=== PATIENT | female | born 1965 | race Caucasian/White ===

== ENCOUNTER 2017-04-13 11:58 | Outpatient (RCR) | payer OTHER ==
[2013-11-24 10:05] VITALS: BMI 36.0
[2017-03-16] MEDS: ACETAMINOPHEN 500 MG TAB PO PRN (13:18)
[2017-03-16] MEDS: diphenhydrAMINE 25 MG CAP PO PRN (13:18)
[2017-03-16 17:00] VITALS: BP 136/86
[~2017-04-13 11:58] MED LIST: CYC10 PO; DEXTROSE 5%(*) 100 ML BAG 100 ML IVPB PRN; ESTR0.62 PO; FING0.5C2 PO; HYDROCORTISONE 100 MG/2 ML IVP PRN; IBUP-1618 PO; IBUP800T37 PO; LIDOCAINE/SOD BICARB 8.4% SYR ID PRN; LOR5 PO; NATALIZUMAB IVPB ONE; NS 0.9% IVPB ONE; OXYC-373 PO; RANI25TA2 PO; ZOL5 PO; diphenhydrAMINE 50 MG/ML VIAL IVP PRN
[2017-04-13] MEDS: diphenhydrAMINE 25 MG CAP PO PRN (12:14)
[2017-04-13] MEDS: ACETAMINOPHEN 500 MG TAB PO PRN (12:15)
[2017-04-13 12:30] VITALS: BP 144/90
[2017-04-13] MEDS ORDERED: NS 0.9% IVPB ONE (13:00)
[2017-04-13] MEDS ORDERED: NATALIZUMAB IVPB ONE (13:00)
[2017-04-13] MEDS: NS(*) 0.9% 100 ML BAG 100 ML IVPB PRN (13:12)
[2017-05-12 12:03] VITALS: BP 131/86
[2017-05-12] MEDS: diphenhydrAMINE 25 MG CAP PO PRN (12:27)
[2017-05-12] MEDS: ACETAMINOPHEN 500 MG TAB PO PRN (12:27)
[2017-05-12] MEDS: NS(*) 0.9% 100 ML BAG 100 ML IVPB PRN (12:28)
[2017-05-12] MEDS ORDERED: NATALIZUMAB IVPB ONE (12:30)
[2017-05-12] MEDS ORDERED: NS 0.9% IVPB ONE (12:30)
== END 2017-06-14 ==
LOC: SPU 11:58
PROVIDERS: ATTEND Psychiatry & Neurology Neurology
DX: G35 Multiple sclerosis (principal); R20.0 Anesthesia of skin; R20.2 Paresthesia of skin; R41.3 Other amnesia; R47.89 Other speech disturbances; R25.1 Tremor, unspecified; R27.9 Unspecified lack of coordination; M62.838 Other muscle spasm; M54.40 Lumbago with sciatica, unspecified side; G89.29 Other chronic pain; R26.9 Unspecified abnormalities of gait and mobility; R53.1 Weakness; R53.82 Chronic fatigue, unspecified; H04.123 Dry eye syndrome of bilateral lacrimal glands; R68.89 Other general symptoms and signs; K59.00 Constipation, unspecified; N31.9 Neuromuscular dysfunction of bladder, unspecified; F32.89 Other specified depressive episodes; F41.9 Anxiety disorder, unspecified; M25.60 Stiffness of unspecified joint, not elsewhere classified; L29.9 Pruritus, unspecified; R20.8 Other disturbances of skin sensation
CPT/HCPCS: 96365; J2323; J7050; Q0163

== ENCOUNTER 2017-08-27 13:00 | Outpatient (RCR) | payer OTHER ==
[2013-11-24 10:05] VITALS: BMI 36.0
[2017-06-19 12:44] VITALS: BP 138/92
[2017-06-19] MEDS: ACETAMINOPHEN 500 MG TAB PO PRN (12:49)
[2017-06-19] MEDS: diphenhydrAMINE 25 MG CAP PO PRN (12:49)
[2017-06-19] MEDS: LIDOCAINE/SOD BICARB 8.4% SYR ID PRN (13:10)
[2017-06-19] MEDS: NS(*) 0.9% 100 ML BAG 100 ML IVPB PRN (14:48)
[2017-07-28] MEDS: ACETAMINOPHEN 500 MG TAB PO PRN (12:39)
[2017-07-28] MEDS: diphenhydrAMINE 25 MG CAP PO PRN (12:39)
[2017-07-28] MEDS: NS(*) 0.9% 100 ML BAG 100 ML IVPB PRN (12:40)
[2017-07-28] MEDS: LIDOCAINE/SOD BICARB 8.4% SYR ID PRN (12:40)
[2017-07-28 12:41] VITALS: BP 129/89
[2017-07-28 14:24] VITALS: BP 121/75
[~2017-08-27 13:00] MED LIST changes: -HYDROCORTISONE 100 MG/2 ML IVP PRN; -LIDOCAINE/SOD BICARB 8.4% SYR ID PRN; -diphenhydrAMINE 50 MG/ML VIAL IVP PRN
[2017-08-27 13:57] VITALS: BP 143/90
[2017-08-27] MEDS: diphenhydrAMINE 25 MG CAP PO PRN (14:18)
[2017-08-27] MEDS: ACETAMINOPHEN 500 MG TAB PO PRN (14:18)
[2017-08-27] MEDS: NS(*) 0.9% 100 ML BAG 100 ML IVPB PRN (14:19)
[2017-08-27] MEDS: LIDOCAINE/SOD BICARB 8.4% SYR ID PRN (14:19)
[2017-08-27] MEDS ORDERED: NATALIZUMAB IVPB ONE (14:30)
[2017-08-27] MEDS ORDERED: NS 0.9% IVPB ONE (14:30)
[2017-08-27 15:53] VITALS: BP 115/72
== END 2017-09-16 ==
LOC: SPU 13:00
PROVIDERS: ATTEND Psychiatry & Neurology Neurology
DX: G35 Multiple sclerosis (principal); R20.0 Anesthesia of skin; R20.2 Paresthesia of skin; R41.3 Other amnesia; R47.89 Other speech disturbances; R25.1 Tremor, unspecified; R27.9 Unspecified lack of coordination; M62.838 Other muscle spasm; M54.40 Lumbago with sciatica, unspecified side; G89.29 Other chronic pain; R26.9 Unspecified abnormalities of gait and mobility; R53.1 Weakness; R53.82 Chronic fatigue, unspecified; H04.123 Dry eye syndrome of bilateral lacrimal glands; R68.89 Other general symptoms and signs; K59.00 Constipation, unspecified; N31.9 Neuromuscular dysfunction of bladder, unspecified; F32.89 Other specified depressive episodes; F41.9 Anxiety disorder, unspecified; M25.60 Stiffness of unspecified joint, not elsewhere classified; L29.9 Pruritus, unspecified; R20.8 Other disturbances of skin sensation
CPT/HCPCS: 96365; J2323; J7050; Q0163

== ENCOUNTER 2017-09-25 13:05 | Outpatient (RCR) | payer OTHER ==
[2013-11-24 10:05] VITALS: BMI 36.0
[~2017-09-25 13:05] MED LIST changes: -DEXTROSE 5%(*) 100 ML BAG 100 ML IVPB PRN; -NATALIZUMAB IVPB ONE; -NS 0.9% IVPB ONE
[2017-09-25 13:14] VITALS: BP 132/85
[2017-09-25] MEDS ORDERED: DEXTROSE 5%(*) 100 ML BAG 100 ML IVPB PRN (13:15)
[2017-09-25] MEDS ORDERED: LIDOCAINE/SOD BICARB 8.4% SYR ID PRN (13:15)
[2017-09-25] MEDS ORDERED: NS(*) 0.9% 100 ML BAG 100 ML IVPB PRN (13:15)
[2017-09-25] MEDS ORDERED: NATALIZUMAB IVPB ONE (13:25)
[2017-09-25] MEDS ORDERED: NS 0.9% IVPB ONE (13:25)
[2017-09-25] MEDS ORDERED: diphenhydrAMINE 50 MG/ML VIAL IVP PRN (13:30)
[2017-09-25] MEDS ORDERED: diphenhydrAMINE 25 MG CAP PO PRN (13:30)
[2017-09-25] MEDS ORDERED: ACETAMINOPHEN 500 MG TAB PO PRN (13:30)
[2017-09-25] MEDS ORDERED: HYDROCORTISONE 100 MG/2 ML IVP PRN (13:30)
== END 2017-09-28 13:52 | disposition home or self-care (01) ==
LOC: SPU 13:05
PROVIDERS: ATTEND Psychiatry & Neurology Neurology
DX: G35 Multiple sclerosis (principal); R20.0 Anesthesia of skin; R20.2 Paresthesia of skin; R41.3 Other amnesia; R47.89 Other speech disturbances; R25.1 Tremor, unspecified; R27.9 Unspecified lack of coordination; M62.838 Other muscle spasm; M54.40 Lumbago with sciatica, unspecified side; G89.29 Other chronic pain; R26.9 Unspecified abnormalities of gait and mobility; R53.1 Weakness; R53.82 Chronic fatigue, unspecified; H04.123 Dry eye syndrome of bilateral lacrimal glands; R68.89 Other general symptoms and signs; K59.00 Constipation, unspecified; N31.9 Neuromuscular dysfunction of bladder, unspecified; F32.89 Other specified depressive episodes; F41.9 Anxiety disorder, unspecified; M25.60 Stiffness of unspecified joint, not elsewhere classified; L29.9 Pruritus, unspecified; R20.8 Other disturbances of skin sensation
CPT/HCPCS: 96365; J2323; J7050

== ENCOUNTER 2017-12-21 13:28 | Outpatient (RCR) | payer OTHER ==
[2013-11-24 10:05] VITALS: BMI 36.0
[2017-10-23 13:02] VITALS: BP 148/93
[2017-10-23] MEDS: NS(*) 0.9% 100 ML BAG 100 ML IVPB PRN (13:30)
[2017-10-23] MEDS: ACETAMINOPHEN 500 MG TAB PO PRN (13:50)
[2017-10-23] MEDS: LIDOCAINE/SOD BICARB 8.4% SYR ID PRN (13:50)
[2017-10-23 15:51] VITALS: BP 121/77
[2017-11-23] MEDS: LIDOCAINE/SOD BICARB 8.4% SYR ID PRN (13:00)
[2017-11-23] MEDS: ACETAMINOPHEN 500 MG TAB PO PRN (13:16)
[2017-11-23 15:30] VITALS: BP 122/72
[~2017-12-21 13:28] MED LIST changes: +DEXTROSE 5%(*) 100 ML BAG 100 ML IVPB PRN; +NATALIZUMAB IVPB ONE; +NS 0.9% IVPB ONE; +diphenhydrAMINE 25 MG CAP PO PRN; +diphenhydrAMINE 50 MG/ML VIAL IVP PRN
[2017-12-21] MEDS: ACETAMINOPHEN 500 MG TAB PO PRN (14:01)
[2017-12-21] MEDS: LIDOCAINE/SOD BICARB 8.4% SYR ID PRN (14:01)
[2017-12-21] MEDS: NS(*) 0.9% 100 ML BAG 100 ML IVPB PRN (14:02)
[2017-12-21 14:03] VITALS: BP 119/75
[2017-12-21] MEDS ORDERED: NATALIZUMAB IVPB ONE (14:15)
[2017-12-21] MEDS ORDERED: NS 0.9% IVPB ONE (14:15)
== END 2018-01-20 ==
LOC: SPU 13:28
PROVIDERS: ATTEND Psychiatry & Neurology Neurology
DX: G35 Multiple sclerosis (principal); R20.0 Anesthesia of skin; R20.2 Paresthesia of skin; R41.3 Other amnesia; R47.89 Other speech disturbances; R25.1 Tremor, unspecified; R27.9 Unspecified lack of coordination; M62.838 Other muscle spasm; M54.40 Lumbago with sciatica, unspecified side; G89.29 Other chronic pain; R26.9 Unspecified abnormalities of gait and mobility; R53.82 Chronic fatigue, unspecified; H04.123 Dry eye syndrome of bilateral lacrimal glands; R68.89 Other general symptoms and signs; K59.00 Constipation, unspecified; N31.9 Neuromuscular dysfunction of bladder, unspecified; F32.89 Other specified depressive episodes; F41.9 Anxiety disorder, unspecified; M25.60 Stiffness of unspecified joint, not elsewhere classified; L29.9 Pruritus, unspecified; R20.8 Other disturbances of skin sensation
CPT/HCPCS: 96365; J2323; J7050; Q0163

== ENCOUNTER 2018-03-02 12:00 | Outpatient (RCR) | payer OTHER ==
[2013-11-24 10:05] VITALS: BMI 36.0
[2018-01-21 13:30] VITALS: BP 124/88
[2018-01-21] MEDS: ACETAMINOPHEN 500 MG TAB PO PRN (14:21)
[2018-01-21] MEDS: NS(*) 0.9% 100 ML BAG 100 ML IVPB PRN (14:21)
[2018-01-21] MEDS: diphenhydrAMINE 25 MG CAP PO PRN (14:21)
[2018-01-21] MEDS: LIDOCAINE/SOD BICARB 8.4% SYR ID PRN (14:22)
[2018-01-21 14:40] LABS: PLATELET COUNT, AUTOMATED 264 K/uL (150-450)
[2018-01-21 16:18] VITALS: BP 128/70
[~2018-03-02 12:00] MED LIST changes: -diphenhydrAMINE 25 MG CAP PO PRN; -diphenhydrAMINE 50 MG/ML VIAL IVP PRN
[2018-03-02 12:18] VITALS: BP 136/96
[2018-03-02] MEDS: ACETAMINOPHEN 500 MG TAB PO PRN (12:38)
[2018-03-02] MEDS: NS(*) 0.9% 100 ML BAG 100 ML IVPB PRN (12:38)
[2018-03-02] MEDS: LIDOCAINE/SOD BICARB 8.4% SYR ID PRN (12:38)
[2018-03-02] MEDS ORDERED: NATALIZUMAB IVPB ONE (12:40)
[2018-03-02] MEDS ORDERED: NS 0.9% IVPB ONE (12:40)
[2018-03-02] MEDS: diphenhydrAMINE 25 MG CAP PO PRN (12:41)
== END 2018-04-21 ==
LOC: SPU 12:00
PROVIDERS: ATTEND Psychiatry & Neurology Neurology
DX: G35 Multiple sclerosis (principal)
CPT/HCPCS: 82306; 85025; 87798; 96365; J2323; J7050; Q0163; 82040; 82247; 82310; 82374; 82435; 82565; 82947; 84075; 84132; 84155; 84295; 84450; 84460; 84520

== ENCOUNTER 2018-07-01 14:13 | Emergency (ER) | payer OTHER ==
[2013-11-24 10:05] VITALS: Wt 108.9 kg
[~2018-07-01 14:13] MED LIST changes: -ANTIDEPRESSANT; -DEXT25CP PO; -DULO60CA7 PO; -ESTR0.4513 PO; -IBUP400T13 PO; -LEVO500T83 PO; -LEVO75TA73 PO; -ONDA4TAB9 PO; -PROM25SU8 PR; -SOLUMEDROL; -TRAZ100T31 PO; -VALA500T63 PO; -[UNRECOGNIZED DRUG - CODE]
--- NOTE | 2018-07-01 14:18 | ER Report ---
History and Physical Time Seen By MD: 14:16 HPI/ROS CHIEF COMPLAINT: Weakness, fatigue HISTORY OF PRESENT ILLNESS: Patient is a 53-year-old female here with complaints of weakness, fatigue, decreased appetite, dehydration in the setting of subs equent 5 infusions of Latrada for MS. patient had her last infusion on Thursday of last week and reports significant weakness, dehydration, fatigue, diarrhea, nausea. Patient was brought in today due to profound weakness, somnolence per patient's . Patient was initially hypotensive at time of evaluation, afebrile. REVIEW OF SYSTEMS: Constitutional: No fever, no chills. Eyes: No discharge. ENT: No sore throat. + dry MM Cardiovascular: No chest pain, no palpitations. Respiratory: + cough, no shortness of breath. Gastrointestinal: No abdominal pain, no vomiting, + nausea Genitourinary: No hematuria, + decreased UO Musculoskeletal: No back pain. Skin: No rashes. Neurological: No headache. + generalized weakness Allergies: Coded Allergies: butorphanol (Verified Adverse Reaction, Mild, PANIC ATTACKS, 07/01/18) Home Meds Active Scripts Promethazine HCl (Phenergan) 25 Mg Supp.rect, 1 SUPP.RECT [place] Q8-12H, #20 SUPP.RECT Prov:JUANCHO GOMEZ DO 07/01/18 Ondansetron 4 Mg Odt (ONDANSETRON 4 MG ODT) 4 Mg Tab.rapdis, 4 MG PO Q6H PRN for NAUSEA/VOMITING, #30 TAB Prov:JUANCHO GOMEZ DO 07/01/18 Ibuprofen (IBUPROFEN) 800 Mg Tablet, 1 TAB PO Q8H, #30 TAB Prov:ANUSHA MAY MD 11/24/13 Reported Medications [Antidepressant] No Conflict Check 07/01/18 [Solumedrol] No Conflict Check 07/01/18 Valacyclovir Hcl (VALACYCLOVIR) 500 Mg Tablet, 500 MG PO 07/01/18 Levothyroxine Sodium (LEVOTHYROXINE SODIUM) 75 Mcg Tablet, 75 MCG PO QDAY, TAB 07/01/18 Alemtuzumab (Lemtrada) 12 Mg/1.2 Ml Vial 07/01/18 Estrogens, Conjugated 0.625 Mg Tab (PREMARIN 0.625 MG TAB) 0.625 Mg Tablet, 0.625 MG PO QDAY, #30 2 Refills 8/21/14 Ranitidine Hcl (Zantac 25) 25 Mg Tablet.eff, 75 MG PO PRN 07/28/11 Constitutional Vital Sign - Last 24 Hours 07/01/18 07/01/18 07/01/18 07/01/18 14:16 14:18 14:20 14:40 Temp 98.3 Pulse 79 Resp 20 B/P (MAP) 96/71 96/71 (79) 98/75 (83) 118/75 (89) Pulse Ox 95 O2 Delivery Room Air 07/01/18 07/01/18 14:43 15:13 Pulse 66 70 Resp 11 12 Pulse Ox 92 94 Physical Exam General Appearance: The patient is alert, has no immediate need for airway protection and no signs of toxicity. Somnolent+, no focal deficits Eyes: Pupils equal and round no pallor or injection. ENT, Mouth: + dry MM Respiratory: There are no retractions, lungs are clear to auscultation. Cardiovascular: Regular rate and rhythm. Gastrointestinal: Abdomen is soft and non tender, no masses, bowel sounds normal. Neurological: AAO, + generalized weakness, no focal findings Skin: Warm and dry, no rashes. Musculoskeletal: Neck is supple non tender. Extremities are nontender, nonswollen and have full range of motion. DIFFERENTIAL DIAGNOSIS: After history and physical exam differential diagnosis was considered for dehydration, electrolyte abnormality, medication side effects, viral illness, pneumonia Medical Decision Making Data Points Result Diagram: 07/01/18 1410 07/01/18 1410 Laboratory Hematology Test 07/01/18 00:00 07/01/18 14:10 07/01/18 17:21 Influenza Virus Type A (PCR) Negative (NEGATIVE) Influenza Virus Type B (PCR) Negative (NEGATIVE) Red Blood Count 5.90 M/uL (4.17-5.56) Mean Corpuscular Volume 81.8 fL (80.0-96.0) Mean Corpuscular Hemoglobin 28.1 pg (26.0-33.0) Mean Corpuscular Hemoglobin Concent 34.3 g/dL (32.0-36.0) Red Cell Distribution Width 15.0 % (11.5-14.5) Mean Platelet Volume 8.6 fL (7.2-11.1) Neutrophils (%) (Auto) 94.6 % (39.4-72.5) Lymphocytes (%) (Auto) 0.9 % (17.6-49.6) Monocytes (%) (Auto) 4.1 % (4.1-12.4) Eosinophils (%) (Auto) 0.0 % (0.4-6.7) Basophils (%) (Auto) 0.4 % (0.3-1.4) Nucleated RBC Relative Count (auto) 0.1 /100WBC Neutrophils # (Auto) 10.9 K/uL (2.0-7.4) Lymphocytes # (Auto) 0.1 K/uL (1.3-3.6) Monocytes # (Auto) 0.5 K/uL (0.3-1.0) Eosinophils # (Auto) 0.0 K/uL (0.0-0.5) Basophils # (Auto) 0.0 K/uL (0.0-0.1) Nucleated RBC Absolute Count (auto) 0.01 K/uL Sodium Level 133 mmol/L (137-145) Potassium Level 2.8 mmol/L (3.5-5.0) Chloride Level 95 mmol/L (98-107) Carbon Dioxide Level 20 mmol/L (22-31) Blood Urea Nitrogen 25 mg/dl (7-18) Creatinine 1.60 mg/dl (0.52-1.04) Glomerular Filtration Rate Calc 33.6 Random Glucose 139 mg/dl (75-110) Calcium Level 9.4 mg/dl (8.4-10.2) Magnesium Level 2.7 mg/dl (1.7-2.2) Total Bilirubin 0.6 mg/dl (0.2-1.3) Aspartate Amino Transf (AST/SGOT) 58 U/L (0-35) Alanine Aminotransferase (ALT/SGPT) 45 U/L (0-56) Alkaline Phosphatase 145 U/L (0-126) Total Protein 7.9 g/dl (6.3-8.2) Albumin 4.2 g/dl (3.5-5.0) Lipase 64 U/L (23-300) Lactate 2.3 mmol/L (0.7-2.1) Chemistry Test 07/01/18 00:00 07/01/18 14:10 07/01/18 17:21 Influenza Virus Type A (PCR) Negative (NEGATIVE) Influenza Virus Type B (PCR) Negative (NEGATIVE) White Blood Count 11.5 k/uL (4.5-11.0) Red Blood Count 5.90 M/uL (4.17-5.56) Hemoglobin 16.6 g/dL (12.0-16.0) Hematocrit 48.2 % (34.0-47.0) Mean Corpuscular Volume 81.8 fL (80.0-96.0) Mean Corpuscular Hemoglobin 28.1 pg (26.0-33.0) Mean Corpuscular Hemoglobin Concent 34.3 g/dL (32.0-36.0) Red Cell Distribution Width 15.0 % (11.5-14.5) Platelet Count 201 K/uL (150-450) Mean Platelet Volume 8.6 fL (7.2-11.1) Neutrophils (%) (Auto) 94.6 % (39.4-72.5) Lymphocytes (%) (Auto) 0.9 % (17.6-49.6) Monocytes (%) (Auto) 4.1 % (4.1-12.4) Eosinophils (%) (Auto) 0.0 % (0.4-6.7) Basophils (%) (Auto) 0.4 % (0.3-1.4) Nucleated RBC Relative Count (auto) 0.1 /100WBC Neutrophils # (Auto) 10.9 K/uL (2.0-7.4) Lymphocytes # (Auto) 0.1 K/uL (1.3-3.6) Monocytes # (Auto) 0.5 K/uL (0.3-1.0) Eosinophils # (Auto) 0.0 K/uL (0.0-0.5) Basophils # (Auto) 0.0 K/uL (0.0-0.1) Nucleated RBC Absolute Count (auto) 0.01 K/uL Glomerular Filtration Rate Calc 33.6 Calcium Level 9.4 mg/dl (8.4-10.2) Magnesium Level 2.7 mg/dl (1.7-2.2) Total Bilirubin 0.6 mg/dl (0.2-1.3) Aspartate Amino Transf (AST/SGOT) 58 U/L (0-35) Alanine Aminotransferase (ALT/SGPT) 45 U/L (0-56) Alkaline Phosphatase 145 U/L (0-126) Total Protein 7.9 g/dl (6.3-8.2) Albumin 4.2 g/dl (3.5-5.0) Lipase 64 U/L (23-300) Lactate 2.3 mmol/L (0.7-2.1) EKG/Imaging Imaging PATIENT NAME: Leeann Olmstead : 1965 MR: [id number] V: [id number] EXAM DATE: ORDERING PHYSICIAN: JUANCHO GOMEZ TECHNOLOGIST: Location: [facility] Patient: Leeann Olmstead : 1965 Visit/Account:[id number] Date of Sevice: 07/01/2018 Technique: CHEST PA LAT HISTORY: cough COMPARISON: Chest radiographs October 26, 2013 Findings: The lungs are clear. No pleural effusion or pneumothorax. The cardiomediastinal silhouette is unchanged. Impression: 1. No acute cardiopulmonary process. ED Course/Re-evaluation ED Course Patient is a 53-year-old female here with complaints of dehydration, weakness, general malaise the setting of recent monoclonal antibody therapy for multiple sclerosis including 5 treatments completed on Thursday. Patient has had decreased oral intake, decreased appetite, significant dehydration as demonstrated by increased creatinine to 1.6, lactate of 3.6, potassium of 2.8 in the setting of ongoing diarrhea and dehydration likely making hold a creatinine prerenal in etiology. Patient was given 2 L normal saline and potassium repletion using 40 mEq of potassium. Due to the significantly elevated lactate in spite of patient being afebrile and having no significant signs of infection, lactate was repeated after administration of fluids. Chest x-ray showed no acute findings in spite of the patient complaining of persistent cough. Patient was given scripts for Zofran, Phenergan after lactate returned decreased down to 2.3 likely improved with hydration. Return precautions provided, close PCP follow-up recommended. Decision to Disposition Date: Jul 01, 2018 Decision to Disposition Time: 17:48 Depart Departure Latest Vital Signs Vital Signs Date Time Temp Pulse Resp B/P (MAP) Pulse Ox O2 Delivery O2 Flow Rate FiO2 07/01/18 15:13 70 12 94 07/01/18 14:40 118/75 (89) 07/01/18 14:16 98.3 Room Air Impression: Primary Impression: Medication side effect Additional Impressions: Dehydration Acute kidney injury Condition: Improved Disposition: HOME OR SELF-CARE New Scripts Promethazine HCl (Phenergan) 25 Mg Supp.rect 1 SUPP.RECT [place] Q8-12H, #20 SUPP.RECT Prov: JUANCHO GOMEZ DO 07/01/18 Ondansetron 4 Mg Odt (ONDANSETRON 4 MG ODT) 4 Mg Tab.rapdis 4 MG PO Q6H PRN for NAUSEA/VOMITING, #30 TAB Prov: JUANCHO GOMEZ DO 07/01/18 Patient Instructions: Dehydration (ED) Additional Instructions: Please follow-up in the next 24-48 hours with your primary care doctor as he may need to have repeat labs completed to evaluate for electrolytes and kidney function. Please drink plenty of water, you may utilize Reglan orally every 8 hours or Phenergan suppository every 8-12 hours as needed for nausea and vomiting. Please return promptly if you develop fevers, inability to keep down food or fluids, decreased urine output, shortness of breath, increasing weakness. Problem Qualifiers JUANCHO GOMEZ DO Jul 01, 2018 14:18
[2018-07-01] MEDS ORDERED: LEVO75TA73 PO (14:30)
[2018-07-01] MEDS ORDERED: [UNRECOGNIZED DRUG - CODE] (14:30)
[2018-07-01] MEDS ORDERED: VALA500T63 PO (14:30)
[2018-07-01] MEDS ORDERED: SOLUMEDROL (14:32)
[2018-07-01] MEDS ORDERED: ANTIDEPRESSANT (14:32)
[2018-07-01] MEDS ORDERED: ONDANSETRON 4 MG/2 ML VIAL IVP ONE (14:40)
[2018-07-01] MEDS ORDERED: NS(*) 0.9% 1000 ML BAG 1,000 ML IV ONE ×2 (14:40→15:50)
[2018-07-01] MEDS ORDERED: LOPERAMIDE HCL 1 MG/5 ML UDC PO PRN (14:55)
[2018-07-01 14:57] LABS: PLATELET COUNT, AUTOMATED 201 K/uL (150-450)
[2018-07-01] MEDS ORDERED: LOPERAMIDE HCL 2 MG CAP PO PRN (15:05)
[2018-07-01] MEDS ORDERED: POTASSIUM CHL 20 MEQ TABCR PO ONE (15:25)
--- NOTE | 2018-07-01 16:26 | RADIOLOGY IMAGING REPORT ---
FACILITY: [facility] PATIENT NAME: Leeann Olmstead : 1965 MR: [id number] V: [id number] EXAM DATE: ORDERING PHYSICIAN: JUANCHO GOMEZ TECHNOLOGIST: Location: [facility] [place] Patient: Leeann Olmstead : 1965 Visit/Account:[id number] Date of Sevice: 07/01/2018 Technique: CHEST PA LAT HISTORY: cough COMPARISON: Chest radiographs October 26, 2013 Findings: The lungs are clear. No pleural effusion or pneumothorax. The cardiomediastinal silhouett e is unchanged. Impression: 1. No acute cardiopulmonary process. Report Dictated By: Dany Grewal DO at 07/01/2018 4:20 PM Report E-Signed By: Dany Grewal DO at 07/01/2018 4:22 PM WSN:[id number]
[2018-07-01 17:40] VITALS: BP 117/82
[2018-07-01] MEDS ORDERED: PROM25SU8 PR (17:47)
[2018-07-01] MEDS ORDERED: ONDA4TAB9 PO (17:47)
[2018-07-02] MEDS ORDERED: IBUP400T13 PO (20:19)
[2018-07-02] MEDS ORDERED: IBUP800T37 PO (20:19)
== END 2018-07-01 18:01 | disposition home or self-care (01) ==
LOC: EDUNIT# 14:13 → ER 14:17
DX: N17.9 Acute kidney failure, unspecified (principal); T50.995A Adverse effect of other drugs, medicaments and biological substances, initial encounter; E86.0 Dehydration
CPT/HCPCS: 71046; 83605; 83690; 83735; 85025; 87502; 96361; 96374; 99283; J2405; J7030; 82040; 82247; 82310; 82374; 82435; 82565; 82947; 84075; 84132; 84155; 84295; 84450; 84460; 84520

== ENCOUNTER → 2018-07-01 | Outpatient (CLI) | payer OTHER ==
[~2018-07-01] MED LIST changes: +ANTIDEPRESSANT; +DEXT25CP PO; -DEXTROSE 5%(*) 100 ML BAG 100 ML IVPB PRN; +DULO60CA7 PO; +ESTR0.4513 PO; +IBUP400T13 PO; +LEVO500T83 PO; +LEVO75TA73 PO; -NATALIZUMAB IVPB ONE; -NS 0.9% IVPB ONE; +ONDA4TAB9 PO; +PROM25SU8 PR; +SOLUMEDROL; +TRAZ100T31 PO; +VALA500T63 PO; +[UNRECOGNIZED DRUG - CODE]
== END ==
LOC: AMB 13:59
PROVIDERS: ATTEND Nurse Practitioner
DX: R53.1 Weakness (principal)
CPT/HCPCS: A0425; A0427

== ENCOUNTER 2018-07-02 15:43 | Inpatient (IN) | payer OTHER ==
[~2018-07-02] VITALS: Ht 172.7 cm; Wt 108.9 kg
[~2018-07-02 15:43] MED LIST changes: +ANTIDEPRESSANT; +LEVO75TA73 PO; +ONDA4TAB9 PO; +PROM25SU8 PR; +SOLUMEDROL; +VALA500T63 PO; +[UNRECOGNIZED DRUG - CODE]
--- NOTE | 2018-07-02 16:09 | ER Report ---
History and Physical Time Seen By : 16:09 HPI/ROS CHIEF COMPLAINT: Diarrhea HISTORY OF PRESENT ILLNESS: This is a 53-year-old female presents to the emergency department for continuation of her diarrhea. Patient was seen and evaluated in the emergency department yesterday for weakness, fatigue decreased appetite dehydration, subsequent to infusions of blood Letrada for MS. The last infusion was last Thursday which was one week ago. She was given fluids, ultimately discharged from the emergency department followed up with her primary care provider today, continued to have diarrhea apparently they put in a repeat laboratory studies however they wanted to send the patient to the ER for reevaluation and fluid hydration. No chest pain or shortness of breath. No headaches. No visual changes. REVIEW OF SYSTEMS: Constitutional: No fever, no chills. Eyes: No discharge. ENT: No sore throat. Cardiovascular: No chest pain, no palpitations. Respiratory: No cough, no shortness of breath. Gastrointestinal: As above. Genitourinary: No hematuria. Musculoskeletal: No back pain. Skin: No rashes. Neurological: No headache. Allergies: Coded Allergies: butorphanol (Verified Adverse Reaction, Mild, PANIC ATTACKS, 07/01/18) Home Meds Active Scripts Promethazine HCl (Phenergan) 25 Mg Supp.rect, 1 SUPP.RECT [place] Q8-12H, #20 SUPP.RECT Prov:JUANCHO GOMEZ DO 07/01/18 Ondansetron 4 Mg Odt (ONDANSETRON 4 MG ODT) 4 Mg Tab.rapdis, 4 MG PO Q6H PRN for NAUSEA/VOMITING, #30 TAB Prov:JUANCHO GOMEZ DO 07/01/18 Reported Medications Ibuprofen (IBUPROFEN) 800 Mg Tablet, 1 TAB PO Q8H, TAB 07/02/18 Ibuprofen (IBUPROFEN) 400 Mg Tablet, 1 TAB PO Q6H, TAB 07/02/18 Valacyclovir Hcl (VALACYCLOVIR) 500 Mg Tablet, 500 MG PO 07/01/18 Levothyroxine Sodium (LEVOTHYROXINE SODIUM) 75 Mcg Tablet, 75 MCG PO QDAY, TAB 07/01/18 Alemtuzumab (Lemtrada) 12 Mg/1.2 Ml Vial 07/01/18 Estrogens, Conjugated 0.625 Mg Tab (PREMARIN 0.625 MG TAB) 0.625 Mg Tablet, 0.625 MG PO QDAY, #30 2 Refills 11/24/13 Discontinued Reported Medications [Antidepressant] No Conflict Check 07/01/18 [Solumedrol] No Conflict Check 07/01/18 Ranitidine Hcl (Zantac 25) 25 Mg Tablet.eff, 75 MG PO PRN 07/28/11 Discontinued Scripts Ibuprofen (IBUPROFEN) 800 Mg Tablet, 1 TAB PO Q8H, #30 TAB Prov:ANUSHA MAY MD 11/24/13 Past Medical/Surgical History The patient has a past medical and surgical history of MS, gastric bypass, GERD, uses cannabis, precancerous basal cell carcinoma removed from face, hysterectomy, bilateral knee reconstruction. Reviewed Nurses Notes: Yes Hx Smoking: No Smoking Status: Never Smoker Hx Substance Use Disorder: Yes ([place]IS) Hx Alcohol Use: No Constitutional Vital Sign - Last 24 Hours 07/02/18 07/02/18 07/02/18 07/02/18 16:09 16:12 16:13 16:28 Temp 98.4 Pulse 85 87 81 Resp 14 B/P (MAP) 129/87 (101) 129/87 Pulse Ox 94 88 93 O2 Delivery Room Air 07/02/18 07/02/18 07/02/18 07/02/18 16:30 16:43 16:58 17:13 Pulse 82 84 82 Resp 34 9 B/P (MAP) 127/91 (103) Pulse Ox 90 94 94 07/02/18 07/02/18 07/02/18 07/02/18 17:28 17:30 17:35 17:50 Pulse 75 76 ??? Resp 11 16 B/P (MAP) ???/??? (1665) Pulse Ox 100 95 07/02/18 07/02/18 18:00 18:05 Pulse 82 Resp 12 B/P (MAP) 134/94 (107) Pulse Ox 94 Physical Exam General Appearance: The patient is alert, has no immediate need for airway protection and no signs of toxicity. Eyes: Pupils equal and round no pallor or injection. ENT, Mouth: Mucous membranes are moist. Respiratory: There are no retractions, lungs are clear auscultation. Cardiovascular: Regular rate and rhythm., No murmurs, clicks or rubs. Gastrointestinal: Abdomen is round, soft and non tender, no masses, hypoactive bowel sounds. Neurological: Alert and oriented 4. Moving all extremities. Following all commands. No focal neuro deficits. Skin: Warm and dry, no rashes. Musculoskeletal: Neck is supple non tender. Extremities are nontender, nonswollen and have full range of motion. DIFFERENTIAL DIAGNOSIS: After history and physical exam differential diagnosis was considered for medication reaction, infectious diarrhea. Medical Decision Making Data Points Result Diagram: 07/02/18 1644 07/02/18 1644 Laboratory Hematology Test 07/02/18 16:14 07/02/18 16:44 Stool Occult Blood (IFOB) Negative (NEGATIVE) Stool Leukocytes, Qualitative Positive C. difficile Toxin B Gene (PCR) Negative Red Blood Count 5.68 M/uL (4.17-5.56) Mean Corpuscular Volume 80.8 fL (80.0-96.0) Mean Corpuscular Hemoglobin 28.0 pg (26.0-33.0) Mean Corpuscular Hemoglobin Concent 34.7 g/dL (32.0-36.0) Red Cell Distribution Width 14.7 % (11.5-14.5) Mean Platelet Volume 8.3 fL (7.2-11.1) Neutrophils (%) (Auto) 94.3 % (39.4-72.5) Lymphocytes (%) (Auto) 0.3 % (17.6-49.6) Monocytes (%) (Auto) 5.1 % (4.1-12.4) Eosinophils (%) (Auto) 0.0 % (0.4-6.7) Basophils (%) (Auto) 0.3 % (0.3-1.4) Nucleated RBC Relative Count (auto) 0.1 /100WBC Neutrophils # (Auto) 8.6 K/uL (2.0-7.4) Lymphocytes # (Auto) 0.0 K/uL (1.3-3.6) Monocytes # (Auto) 0.5 K/uL (0.3-1.0) Eosinophils # (Auto) 0.0 K/uL (0.0-0.5) Basophils # (Auto) 0.0 K/uL (0.0-0.1) Nucleated RBC Absolute Count (auto) 0.01 K/uL Sodium Level 129 mmol/L (137-145) Potassium Level 2.7 mmol/L (3.5-5.0) Chloride Level 97 mmol/L (98-107) Carbon Dioxide Level 16 mmol/L (22-31) Blood Urea Nitrogen 21 mg/dl (7-18) Creatinine 1.20 mg/dl (0.52-1.04) Glomerular Filtration Rate Calc 46.8 Random Glucose 109 mg/dl (75-110) Calcium Level 8.8 mg/dl (8.4-10.2) Total Bilirubin 0.5 mg/dl (0.2-1.3) Aspartate Amino Transf (AST/SGOT) 38 U/L (0-35) Alanine Aminotransferase (ALT/SGPT) 42 U/L (0-56) Alkaline Phosphatase 126 U/L (0-126) Total Protein 7.5 g/dl (6.3-8.2) Albumin 3.9 g/dl (3.5-5.0) Lipase 58 U/L (23-300) Chemistry Test 07/02/18 16:14 07/02/18 16:44 Stool Occult Blood (IFOB) Negative (NEGATIVE) Stool Leukocytes, Qualitative Positive C. difficile Toxin B Gene (PCR) Negative White Blood Count 9.1 k/uL (4.5-11.0) Red Blood Count 5.68 M/uL (4.17-5.56) Hemoglobin 15.9 g/dL (12.0-16.0) Hematocrit 45.9 % (34.0-47.0) Mean Corpuscular Volume 80.8 fL (80.0-96.0) Mean Corpuscular Hemoglobin 28.0 pg (26.0-33.0) Mean Corpuscular Hemoglobin Concent 34.7 g/dL (32.0-36.0) Red Cell Distribution Width 14.7 % (11.5-14.5) Platelet Count 237 K/uL (150-450) Mean Platelet Volume 8.3 fL (7.2-11.1) Neutrophils (%) (Auto) 94.3 % (39.4-72.5) Lymphocytes (%) (Auto) 0.3 % (17.6-49.6) Monocytes (%) (Auto) 5.1 % (4.1-12.4) Eosinophils (%) (Auto) 0.0 % (0.4-6.7) Basophils (%) (Auto) 0.3 % (0.3-1.4) Nucleated RBC Relative Count (auto) 0.1 /100WBC Neutrophils # (Auto) 8.6 K/uL (2.0-7.4) Lymphocytes # (Auto) 0.0 K/uL (1.3-3.6) Monocytes # (Auto) 0.5 K/uL (0.3-1.0) Eosinophils # (Auto) 0.0 K/uL (0.0-0.5) Basophils # (Auto) 0.0 K/uL (0.0-0.1) Nucleated RBC Absolute Count (auto) 0.01 K/uL Glomerular Filtration Rate Calc 46.8 Calcium Level 8.8 mg/dl (8.4-10.2) Total Bilirubin 0.5 mg/dl (0.2-1.3) Aspartate Amino Transf (AST/SGOT) 38 U/L (0-35) Alanine Aminotransferase (ALT/SGPT) 42 U/L (0-56) Alkaline Phosphatase 126 U/L (0-126) Total Protein 7.5 g/dl (6.3-8.2) Albumin 3.9 g/dl (3.5-5.0) Lipase 58 U/L (23-300) EKG/Imaging EKG Interpretation 12 lead EKG: Time of EKG 1754. Rhythm: Normal sinus rhythm, ventricular rate 75 bpm. [place]: Left axis deviation. QRS: normal ST segments: No ST depression or elevation identified, foreign T-wave in V2. ED Course/Re-evaluation Clinical Indication for ER IV: Hydration, IV Access ED Course The patient was admitted to room. A history and physical obtained. Differential diagnoses were considered. IV was started. A CBC, CMP and stool study was collected. A 1 L lactated Ringer's bolus was given. CBC negative for WBCs however there is a left shift, chemistry showing sodium 129, potassium 2.7, BUN 21, creatinine 1.20, positive stool leukocytes. Patient was given 40 male quadrants IV potassium. I did speak with Dr. Estrada the hospitalist press tender long goods as noted below, his accept the patient in the hospitalist services for hyponatremia, hypokalemia and diarrhea. No concerning findings on EKG. 07/02/2018 5:56:13 pm I did speak with Dr. Estrada regarding patient's case, he is agreed to admit the patient to the hospitalist services. Decision to Disposition Date: Jul 02, 2018 Decision to Disposition Time: 17:49 Depart Departure Latest Vital Signs Vital Signs Date Time Temp Pulse Resp B/P (MAP) Pulse Ox O2 Delivery O2 Flow Rate FiO2 07/02/18 18:05 82 12 94 07/02/18 18:00 134/94 (107) 07/02/18 16:12 98.4 Room Air Impression: Primary Impression: Hyponatremia Additional Impressions: Hypokalemia Diarrhea Condition: Improved Disposition: Admitted from ER Referrals: KARLA LARA MD (PCP) Problem Qualifiers Additional Impressions: Diarrhea Diarrhea type: presumed infectious Qualified Codes: R19.7 - Diarrhea, unspecified NURIA GEORGEP-BC Jul 02, 2018 16:09
[2018-07-02] MEDS ORDERED: LR(*) 1000 ML BAG 1,000 ML IV ONE (16:23)
[2018-07-02] MEDS ORDERED: ONDANSETRON 4 MG/2 ML VIAL IVP ONE (16:25)
[2018-07-02 17:00] LABS: PLATELET COUNT, AUTOMATED 237 K/uL (150-450)
[2018-07-02] MEDS ORDERED: KCL (*) 20 MEQ/100 ML PREMIX 100 ML IV ONE (17:40)
[2018-07-02 20:05] VITALS: BP 115/89
[2018-07-02] MEDS ORDERED: IBUP800T37 PO (20:19)
[2018-07-02] MEDS ORDERED: IBUP400T13 PO (20:19)
--- NOTE | 2018-07-02 20:44 | History & Physical ---
History of Present Illness Chief Complaint Diarrhea History of Present Illness This patient presented to the emergency room complaining of diarrhea. She first started to get symptoms several days after completing an infusion of Lemtrada. History Problems: (1) Hypothyroid (2) MS (multiple sclerosis) Home Meds Active Scripts Promethazine HCl (Phenergan) 25 Mg Supp.rect, 1 SUPP.RECT [place] Q8-12H, #20 SUPP.RECT Prov:JUANCHO GOMEZ S DO 07/01/18 Ondansetron 4 Mg Odt (ONDANSETRON 4 MG ODT) 4 Mg Tab.rapdis, 4 MG PO Q6H PRN for NAUSEA/VOMITING, #30 TAB Prov:JUANCHO GOMEZ S DO 07/01/18 Reported Medications Ibuprofen (IBUPROFEN) 800 Mg Tablet, 1 TAB PO Q8H, TAB 07/02/18 Ibuprofen (IBUPROFEN) 400 Mg Tablet, 1 TAB PO Q6H, TAB 07/02/18 Valacyclovir Hcl (VALACYCLOVIR) 500 Mg Tablet, 500 MG PO 07/01/18 Levothyroxine Sodium (LEVOTHYROXINE SODIUM) 75 Mcg Tablet, 75 MCG PO QDAY, TAB 07/01/18 Alemtuzumab (Lemtrada) 12 Mg/1.2 Ml Vial 07/01/18 Estrogens, Conjugated 0.625 Mg Tab (PREMARIN 0.625 MG TAB) 0.625 Mg Tablet, 0.625 MG PO QDAY, #30 2 Refills 11/24/13 Discontinued Reported Medications [Antidepressant] No Conflict Check 07/01/18 [Solumedrol] No Conflict Check 07/01/18 Ranitidine Hcl (Zantac 25) 25 Mg Tablet.eff, 75 MG PO PRN 07/28/11 Discontinued Scripts Ibuprofen (IBUPROFEN) 800 Mg Tablet, 1 TAB PO Q8H, #30 TAB Prov:ANUSHA MAY MD 11/24/13 Allergies: Coded Allergies: butorphanol (Verified Adverse Reaction, Mild, PANIC ATTACKS, 07/01/18) Hx Smoking: No Smoking Status: Never Smoker Caffeine Intake: Tea, Soda Caffeine/Cups Per Day: 2 QUARTS/DAY Hx Alcohol Use: No Review of Systems All Systems Reviewed/Normal: Yes, Except as Noted Gastrointestinal: Diarrhea Exam Vital Signs Vital Signs Date Time Temp Pulse Resp B/P (MAP) Pulse Ox O2 Delivery O2 Flow Rate FiO2 07/02/18 20:05 98.7 83 16 115/89 (98) 98 Room Air Neuro: No Gross deficits Eyes: PERRLA Cardiovascular: Regular Rate and Rhythm Respiratory: Clear to Auscultation GI: Abd Soft and Non-Tender Extremities: No Edema Integumentary: No Cyanosis Medical Decision Making Data Points Result Diagram: 07/02/18 1644 07/02/18 1644 Assessment and Plan Problems: (1) Hypokalemia Status: Acute Assessment & Plan: She is receiving a potassium infusion. (2) Hyponatremia Status: Acute Assessment & Plan: She has been started on IV fluids. (3) Hypothyroid Assessment & Plan: She is on chronic treatment with Synthroid. (4) MS (multiple sclerosis) Assessment & Plan: She did recently start on Lemtrada. Venous Thromboembolism Antithrombotics Is Pt On Any Antithrombotics?: No Exam Sepsis Risk: No Definite Risk ANUSHA HENDERSON DO Jul 02, 2018 20:44
[2018-07-02] MEDS: valACYclovir HCL 500 MG TAB PO SCH (21:16)
[2018-07-02] MEDS: KCL/NS* 20 MEQ/1000 ML PREMIX 1,000 ML IV PRN (21:17)
[2018-07-02 22:19] VITALS: BP 117/75
[2018-07-03] MEDS: ONDANSETRON 4 MG/2 ML VIAL IVP PRN ×3 (01:26→20:05)
[2018-07-03 02:35] VITALS: BP 105/83
[2018-07-03] MEDS: KCL/NS* 20 MEQ/1000 ML PREMIX 1,000 ML IV PRN (05:19)
[2018-07-03] MEDS: LEVOTHYROXINE SOD 0.075 MG TAB PO SCH (05:19)
[2018-07-03 06:26] LABS: PLATELET COUNT, AUTOMATED 227 K/uL (150-450)
--- NOTE | 2018-07-03 06:57 | EKG ---
FACILITY: [facility] PATIENT NAME: EVIN JEAN-BAPTISTE : [id number] MR: [id number] V: [id number] EXAM DATE: ORDERING PHYSICIAN: NURIA GEORGE TECHNOLOGIST: Test Reason : low K and NA Blood Pressure : / mmHG Vent. Rate : 075 BPM Atrial Rate : 075 BPM P-R Int : 120 ms QRS Dur : 086 ms QT Int : 394 ms P-R-T Axes : 042 -35 034 degrees QTc Int : 439 ms Normal sinus rhythm with sinus arrhythmia Left axis deviation Abnormal ECG No previous ECGs available Confirmed by Adam Dc ([id number]) on 07/03/2018 10:09:44 PM Referred By: Confirmed By:Adam Lora
[2018-07-03] MEDS: valACYclovir HCL 500 MG TAB PO SCH ×2 (09:34→20:21)
[2018-07-03] MEDS: ESTROGENS CONJ 0.625 MG TAB PO SCH (09:34)
[2018-07-03 09:55] VITALS: BMI 36.5
[2018-07-03] MEDS: KCL (*) 20 MEQ/100 ML PREMIX 100 ML IV SCH ×2 (10:05→13:46)
[2018-07-03] MEDS: POTASSIUM CHL 20 MEQ TABCR PO SCH ×2 (10:05→17:46)
[2018-07-03 11:15] VITALS: BP 113/79
--- NOTE | 2018-07-03 13:17 | Hospitalist Progress Note ---
Subjective Progress Notes Subjective 53F admitted for diarrhea and hypokalemia. CINDI overnight continues to have profuse diarrhea. Patient Complains of: Gastrointestinal: Nausea, Bowel Movement; No Vomiting Physical Exam Vital Signs Date Time Temp Pulse Resp B/P (MAP) Pulse Ox O2 Delivery O2 Flow Rate FiO2 07/03/18 11:15 98.0 74 18 113/79 (90) 92 Room Air Intake and Output 07/03/18 07:00 Intake Total 1770 ml Balance 1770 ml IV Total 1770 ml # Voids 3 # Bowel Movements 5 General Appearance: Alert, Awake, No Acute Distress Neuro: No Gross deficits ENT: Normal Cardiovascular: Normal Rhythm & Peripheral Pulses Respiratory: No Respiratory Distress GI: Soft and Non-Tender Musculoskeletal: No Weakness/Pain Extremities: Soft and Non Tender Result Diagram: 07/03/1860407/03/18604 Assessment and Plan Problems: (1) Hypokalemia Status: Acute Assessment & Plan: Secondary to diarrhea. She is receiving a potassium infusion and PRN PO potassium. (2) Hyponatremia Status: Acute Assessment & Plan: She has been started on IV fluids. (3) Hypothyroid Assessment & Plan: She is on chronic treatment with Synthroid. (4) MS (multiple sclerosis) Assessment & Plan: She did recently start on Lemtrada. Exam Sepsis Risk: No Definite Risk FRENCH MAGDIEL PLUMMER DO Jul 03, 2018 13:17
--- NOTE | 2018-07-03 15:02 | EKG ---
FACILITY: [facility] [place] PATIENT NAME: EVIN JEAN-BAPTISTE : [id number] MR: [id number] V: [id number] EXAM DATE: ORDERING PHYSICIAN: ADAM PLUMMER TECHNOLOGIST: Test Reason : dysrhythmia Blood Pressure : / mmHG Vent. Rate : 076 BPM Atrial Rate : 076 BPM P-R Int : 136 ms QRS Dur : 082 ms QT Int : 390 ms P-R-T Axes : 040 -08 -03 degrees QTc Int : 438 ms Normal sinus rhythm Nonspecific T wave abnormality Abnormal ECG When compared with ECG of 02-JUL-2018 17:54, No significant change was found Confirmed by Adam Dc ([id number]) on 07/03/2018 10:11:41 PM Referred By: Confirmed By:Adam Plummer
[2018-07-03 15:33] VITALS: BP 133/79
[2018-07-03 20:38] VITALS: BP 120/77
[2018-07-04] MEDS: KCL/NS* 20 MEQ/1000 ML PREMIX 1,000 ML IV PRN ×3 (00:39→18:17)
[2018-07-04] MEDS: LEVOTHYROXINE SOD 0.075 MG TAB PO SCH (05:53)
[2018-07-04 07:07] VITALS: BP 122/67
[2018-07-04] MEDS ORDERED: PROMETHAZINE 25 MG/ML 1 ML AMP IVP PRN (08:30)
[2018-07-04] MEDS: DIPHENOX/ATROPINE 2.5-0.025MG PO PRN ×3 (08:45→21:09)
[2018-07-04] MEDS: metroNIDAZOLE* 500MG/100ML BAG 100 ML IVPB SCH ×2 (08:46→16:44)
[2018-07-04] MEDS: ESTROGENS CONJ 0.625 MG TAB PO SCH (08:49)
[2018-07-04] MEDS ORDERED: INFLUENZA VIRUS VAC 0.5ML SYR IM ONLY ONE (09:00)
[2018-07-04] MEDS ORDERED: DULO60CA7 PO (09:43)
[2018-07-04] MEDS ORDERED: ESTR0.4513 PO (09:43)
[2018-07-04] MEDS ORDERED: TRAZ100T31 PO (09:43)
[2018-07-04] MEDS ORDERED: DEXT25CP PO (09:43)
[2018-07-04] MEDS: LEVOFLOXACIN/D5W*500 MG/100 ML 100 ML IVPB SCH (09:56)
[2018-07-04 11:33] VITALS: BP 127/78
--- NOTE | 2018-07-04 12:05 | Hospitalist Progress Note ---
Subjective Progress Notes Subjective Still having frequent, profuse, watery stools. She denies abdominal cramping/pain. No fevers/chills. Physical Exam Vital Signs Date Time Temp Pulse Resp B/P (MAP) Pulse Ox O2 Delivery O2 Flow Rate FiO2 07/04/18 11:33 97.7 73 12 127/78 (94) 98 Room Air Intake and Output 07/04/18 07:00 Intake Total 760 ml Balance 760 ml Intake Oral 760 ml # Bowel Movements 2 General Appearance: Alert, Awake, No Acute Distress Cardiovascular: Regular Rate and Rhythm Respiratory: Clear to Auscultation GI: Soft and Non-Tender Result Diagram: 07/03/1860407/04/18 0513 Assessment and Plan Problems: (1) Diarrhea Status: Acute Assessment & Plan: She presented with profuse, frequent, watery diarrhea that started 2 days prior to admission and 5 after an infusion of Lemtrada. Diarrhea has been unchanged since then. C. Diff negative, no growth to date on stool culture, but there are leukocytes in the stool. Afebrile. Diarrhea is a known side effect of Lemtrada, but her neurologist has never seen anyone have problems as severe and for such a duration. Because of the persistent diarrhea, will start Levofloxacin/Metronidazole. Will try Lomotil. (2) Hypokalemia Status: Acute Assessment & Plan: Secondary to diarrhea. She is receiving a potassium infusion and PRN PO potassium. (3) Hyponatremia Status: Acute Assessment & Plan: She has been started on IV fluids. (4) Hypothyroid Assessment & Plan: She is on chronic treatment with Synthroid. (5) MS (multiple sclerosis) Assessment & Plan: She did recently start on Lemtrada. Exam Sepsis Risk: No Definite Risk Problem Qualifiers (1) Diarrhea: Diarrhea type: presumed infectious Qualified Codes: R19.7 - Diarrhea, unspecified PETR AKERS MD Jul 04, 2018 12:05
[2018-07-04 14:42] VITALS: BP 126/78
[2018-07-04] MEDS: POTASSIUM CHL PWDR 20 MEQ PKT PO SCH (16:44)
[2018-07-04 18:50] VITALS: BP 129/69
[2018-07-04] MEDS: valACYclovir HCL 500 MG TAB PO SCH (21:09)
[2018-07-04 23:58] VITALS: BP 126/76
[2018-07-05] MEDS: metroNIDAZOLE* 500MG/100ML BAG 100 ML IVPB SCH ×2 (00:49→08:30)
[2018-07-05 03:45] VITALS: BP 122/79
[2018-07-05 05:59] LABS: PLATELET COUNT, AUTOMATED 300 K/uL (150-450)
[2018-07-05] MEDS: LEVOTHYROXINE SOD 0.075 MG TAB PO SCH (06:36)
[2018-07-05] MEDS: DIPHENOX/ATROPINE 2.5-0.025MG PO PRN (06:38)
[2018-07-05 06:47] VITALS: BP 119/71
[2018-07-05] MEDS: POTASSIUM CHL PWDR 20 MEQ PKT PO SCH ×2 (08:30→17:04)
[2018-07-05] MEDS: ESTROGENS CONJ 0.3 MG TAB PO SCH (08:30)
[2018-07-05] MEDS ORDERED: CHOLESTYRAMINE 4 GM POWD PO ONE (10:15)
[2018-07-05] MEDS: LEVOFLOXACIN/D5W*500 MG/100 ML 100 ML IVPB SCH (10:43)
--- NOTE | 2018-07-05 12:02 | Hospitalist Progress Note ---
Subjective Progress Notes Subjective Still having watery greenish diarrhea. No fever. No abdominal pain. Appetite improved. Physical Exam Vital Signs Date Time Temp Pulse Resp B/P (MAP) Pulse Ox O2 Delivery O2 Flow Rate FiO2 07/05/18 07:58 72 07/05/18 07:40 98 Room Air 07/05/18 06:47 98.9 20 119/71 (87) Intake and Output 07/05/18 07:00 Intake Total 1830 ml Balance 1830 ml Intake Oral 1530 ml IV Total 300 ml # Voids 1 # Bowel Movements 11 General Appearance: Alert, Awake Cardiovascular: Regular Rate and Rhythm Respiratory: Clear to Auscultation GI: Soft and Non-Tender (BS present) Extremities: Warm, Perfused Psych: Alert & Oriented X3 Result Diagram: 07/05/1852307/05/18523 Assessment and Plan Problems: (1) Diarrhea Status: Acute Assessment & Plan: She presented with profuse, frequent, watery diarrhea that started 2 days prior to admission and 5 days after an infusion of Lemtrada. Diarrhea has been essentially unchanged since. C. Diff negative, no growth to date on stool culture, but there are leukocytes in the stool. She is afebrile. Diarrhea is a known side effect of Lemtrada, but her neurologist has never seen anyone have problems as severe and for such a duration. Due to the persistent diarrhea, we did start Levofloxacin/Metronidazole. Lomotil has had little effect. Will try a dose or two of Questran to see if it will slow at all. Continue IV fluids. (2) Hypokalemia Status: Acute Assessment & Plan: Improved with replacement. Secondary to diarrhea. (3) Hyponatremia Status: Acute Assessment & Plan: Stable on IV fluids. Monitor. (4) Hypothyroid Assessment & Plan: She is on chronic treatment with Synthroid. (5) MS (multiple sclerosis) Assessment & Plan: She did recently start on Lemtrada. Exam Sepsis Risk: No Definite Risk Problem Qualifiers (1) Diarrhea: Diarrhea type: presumed infectious Qualified Codes: R19.7 - Diarrhea, unspecified MURTAZA RICHEY MD Jul 05, 2018 12:02
[2018-07-05] MEDS: ENOXAPARIN 40 MG/0.4ML SYR SC SCH (13:02)
[2018-07-05] MEDS: KCL/NS* 20 MEQ/1000 ML PREMIX 1,000 ML IV PRN (14:33)
[2018-07-05 14:37] VITALS: BP 138/73
--- NOTE | 2018-07-05 14:56 | RADIOLOGY IMAGING REPORT ---
FACILITY: [facility] [place] PATIENT NAME: Leeann Olmstead : 1965 MR: [id number] V: [id number] EXAM DATE: ORDERING PHYSICIAN: MURTAZA RICHEY TECHNOLOGIST: Location: [facility] Patient: Leeann Olmstead : 1965 Visit/Account:[id number] Date of Sevice: 07/05/2018 Exam type: US VENOUS DOPPLER - UPPER EXT LT History: ?LUE DVT, redness of left arm with pain following multiple IVs Comparison: None. Findings: The left internal jugular vein, left subclavian vein, left axillary vein, proximal left basilic vein proximal left cephalic vein, left brachial veins left radial vein left ulnar veins were compressible and demonstrated flow without evidence of thrombus. There was however thrombus identified in the mid to distal cephalic and basilic veins. There was soft tissue swelling seen along the volar aspect of the left forearm around the elbow IMPRESSION: 1. Findings are consistent with thrombus within the basilic and cephalic veins Report Dictated By: Valentina Alarcon MD at 07/05/2018 2:48 PM Report E-Signed By: Valentina Alarcon MD at 07/05/2018 2:52 PM WSN:[email or web address]
--- NOTE | 2018-07-05 19:46 | Antimicrobial Stewardship ---
Antimicrobial Stewardship Empiricly appropriate: Yes Comment Started on Levaquin and Flagyl IV for severe diarrhea. Approriate Cultures done: Yes (Stool culture resulted in Salmonella Species susceptible to Levaquin so Flagyl has been discontinued.) Renal/Hepatic dosing: Yes Reviewed for Drug Interaction: Yes Monitored for Toxicities: Yes IV to PO Opportunity: Yes Determine cumulative duration: 14 days ERICH LI Jul 05, 2018 19:46
[2018-07-05 20:04] VITALS: BP 135/77
[2018-07-05] MEDS: valACYclovir HCL 500 MG TAB PO SCH (21:10)
[2018-07-06 02:24] VITALS: BP 124/89
[2018-07-06] MEDS: KCL/NS* 20 MEQ/1000 ML PREMIX 1,000 ML IV PRN (02:30)
[2018-07-06] MEDS: LEVOTHYROXINE SOD 0.075 MG TAB PO SCH (05:29)
[2018-07-06 06:05] LABS: PLATELET COUNT, AUTOMATED 331 K/uL (150-450)
[2018-07-06 07:13] VITALS: BP 122/79
[2018-07-06 08:13] VITALS: Ht 172.7 cm; Wt 108.9 kg
[2018-07-06] MEDS: ENOXAPARIN 40 MG/0.4ML SYR SC SCH (08:34)
[2018-07-06] MEDS: ESTROGENS CONJ 0.3 MG TAB PO SCH (08:34)
[2018-07-06] MEDS: POTASSIUM CHL PWDR 20 MEQ PKT PO SCH (08:34)
[2018-07-06] MEDS ORDERED: LEVO500T83 PO (08:56)
--- NOTE | 2018-07-06 08:57 | Hospitalist Depart ---
Discharge Summary Reason for Hosp/Final Diag: (1) Diarrhea Status: Acute Hospital Course & Plan: She did test positive for salmonella. She is on treatment with levofloxacin. (2) Hypokalemia Status: Acute Hospital Course & Plan: Improved with replacement. Secondary to diarrhea. (3) Hyponatremia Status: Acute Hospital Course & Plan: Stable on IV fluids. Monitor. (4) Hypothyroid Hospital Course & Plan: She is on chronic treatment with Synthroid. (5) MS (multiple sclerosis) Hospital Course & Plan: She did recently start on Lemtrada. Departure Latest Vital Signs Vital Signs 07/06/18 07/06/18 07:13 07:19 Temp 98.9 Pulse 74 Resp 16 B/P (MAP) 122/79 (93) Pulse Ox 95 O2 Delivery Room Air Weight (Pounds): 240 Result Diagram: 07/06/1851707/06/18517 Condition: Improved Discharge: Home, Self Care Discharge Instructions Home Meds Active Scripts Promethazine HCl (Phenergan) 25 Mg Supp.rect, 1 SUPP.RECT IN Q8-12H, #20 SUPP.RECT Prov:JUANCHO GOMEZ DO 07/01/18 Ondansetron 4 Mg Odt (ONDANSETRON 4 MG ODT) 4 Mg Tab.rapdis, 4 MG PO Q6H PRN for NAUSEA/VOMITING, #30 TAB Prov:JUANCHO GOMEZ DO 07/01/18 Reported Medications Dextroamphetamine/Amphetamine (Mydayis ER 25 mg Capsule) 25 Mg Cptp.24hr, 1 TAB PO QDAY 07/04/18 Trazodone Hcl (TRAZODONE HCL) 100 Mg Tablet, 100 MG PO HS, TAB TAKE 1-2 TABLETS BY MOUTH EVERY NIGHT AT BEDTIME 07/04/18 Duloxetine HCl (Duloxetine HCl) 60 Mg Capsule.dr, 1 TAB PO QDAY 07/04/18 Estrogens, Conjugated (PREMARIN) 0.45 Mg Tablet, 0.45 MG PO QDAY, TAB 07/04/18 Ibuprofen (IBUPROFEN) 800 Mg Tablet, 1 TAB PO Q8H, TAB 07/02/18 Valacyclovir Hcl (VALACYCLOVIR) 500 Mg Tablet, 500 MG PO 07/01/18 Levothyroxine Sodium (LEVOTHYROXINE SODIUM) 75 Mcg Tablet, 75 MCG PO QDAY, TAB 07/01/18 Alemtuzumab (Lemtrada) 12 Mg/1.2 Ml Vial 07/01/18 Discontinued Reported Medications Estrogens, Conjugated 0.625 Mg Tab (PREMARIN 0.625 MG TAB) 0.625 Mg Tablet, 0.625 MG PO QDAY, #30 2 Refills 11/24/13 [Antidepressant] No Conflict Check 07/01/18 [Solumedrol] No Conflict Check 07/01/18 Ranitidine Hcl (Zantac 25) 25 Mg Tablet.eff, 75 MG PO PRN 07/28/11 Discontinued Scripts Ibuprofen (IBUPROFEN) 800 Mg Tablet, 1 TAB PO Q8H, #30 TAB Prov:ANUSHA MAY MD 11/24/13 Diet: Regular Activity: As Tolerated Venous Thromboembolism Antithrombotics Is Pt On Any Antithrombotics?: No Problem Qualifiers (1) Diarrhea: Diarrhea type: presumed infectious Qualified Codes: R19.7 - Diarrhea, unspecified ANUSHA HENDERSON DO Jul 06, 2018 08:57
[2018-07-06] MEDS: LEVOFLOXACIN/D5W*500 MG/100 ML 100 ML IVPB SCH (09:45)
== END 2018-07-06 11:45 | disposition home or self-care (01) | DRG 372 ==
LOC: ER 15:50 → INTOOBSV 18:18 → MED 18:18 → OBSVTOIN 18:18
PROVIDERS: ADMIT Family Medicine; ATTEND Family Medicine
DX: A02.0 Salmonella enteritis (principal); E87.1 Hypo-osmolality and hyponatremia; I82.622 Acute embolism and thrombosis of deep veins of left upper extremity; I82.612 Acute embolism and thrombosis of superficial veins of left upper extremity; E87.6 Hypokalemia; E86.0 Dehydration; G35 Multiple sclerosis; E03.9 Hypothyroidism, unspecified; I05.0 Rheumatic mitral stenosis; K21.9 Gastro-esophageal reflux disease without esophagitis; Z88.8 Allergy status to other drugs, medicaments and biological substances; Z98.84 Bariatric surgery status; Z85.828 Personal history of other malignant neoplasm of skin; Z90.710 Acquired absence of both cervix and uterus
CPT/HCPCS: 36415; 82040; 82247; 82274; 82310; 82374; 82435; 82565; 82947; 83630; 83690; 83735; 84075; 84132; 84155; 84295; 84443; 84450; 84460; 84520; 85025; 87045; 87077; 87177; 87186; 87493; 93005; 96365; 96372; 96375; 96376; 99284; J1650; J1956; J2405; J2550; J3480; J3490; J7120

== ENCOUNTER → 2018-09-08 | Outpatient (CLI) | payer OTHER ==
[2018-07-06 08:13] VITALS: BMI 36.5
[~2018-09-08] MED LIST changes: +DEXT25CP PO; +DULO60CA7 PO; +ESTR0.4513 PO; +IBUP400T13 PO; +LEVO500T83 PO; +TRAZ100T31 PO
== END ==
LOC: LAB 13:48
PROVIDERS: ATTEND Psychiatry & Neurology Neurology
DX: G35 Multiple sclerosis (principal)
CPT/HCPCS: 81001